=== PATIENT | male | born 1945 | race Two or more races ===

== ENCOUNTER 2017-08-01 08:13 | Observation (INO) | payer OTHER ==
--- NOTE | 2017-08-01 08:38 | CPEKG ---
Heart Rate: 89 RR Interval: 674 P-R Interval: 160 QRSD Interval: 96 QT Interval: 380 QTC Interval: 463 P Humbird: 39 QRS Humbird: 27 T Wave Humbird: 10 EKG Severity - NORMAL ECG - EKG Impression: SINUS RHYTHM Electronically Signed By: Argenis Anne 01-Aug-2017 15:22:51
[2017-08-01] MEDS ORDERED: ASPIRIN 81 MG CHEWABLE TAB PO ONE (08:39)
[2017-08-01] MEDS ORDERED: ASPIRIN 81 MG CHEWABLE TAB ONE (08:40)
[2017-08-01 08:51] LABS: % IMMATURE GRANULYOCYTES 0.7 % (0.0-1.1); ABSOLUTE IMMATURE GRANULOCYTES 0.08 10^3/uL (0.00-0.10); ADD DIFF? NO; ADD MORPH? NO; ADD SCAN? NO; ATYPICAL LYMPHOCYTE FLAG 0 (0-99); FRAGMENT RBC FLAG 0 (0-99); HEMATOCRIT 39.3 % (40.0-51.0); HEMOGLOBIN 13.7 g/dL (13.7-17.5); LEFT SHIFT FLG 0 (0-99); LIPEMIA HEMOLYSIS FLAG 90 (0-99); MEAN CELL HEMOGLOBIN 31.6 pg (27.9-34.1); MEAN CELL HEMOGLOBIN CONCENTR. 34.9 g/dL (32.4-36.7); MEAN CELL VOLUME 90.8 fL (81.5-99.8); PLATELET CLUMPS FLAG 0 (0-99); PLATELET COUNT 278 10^3/uL (150-400); RED BLOOD CELL COUNT 4.33 10^6/uL (4.40-6.38)
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
[2017-08-01 09:05] LABS: ANION GAP 17 mEq/L (8-16); CALCIUM 9.2 mg/dL (8.5-10.4); CARBON DIOXIDE 23 mEq/l (22-31); CHLORIDE 99 mEq/L (97-110); CREATININE 0.7 mg/dL (0.7-1.3); GLOMERULAR FILTRATION RATE > 60; GLUCOSE 103 mg/dL (70-100); POTASSIUM 3.9 mEq/L (3.5-5.2); SODIUM 139 mEq/L (134-144)
[2017-08-01 09:13] LABS: APTT 30.7 SEC (23.0-38.0); INR 1.14 (0.83-1.16); PROTIME(PATIENT) 14.8 SEC (12.0-15.0)
[2017-08-01 09:17] LABS: CREATINE KINASE-MB FRACTION 2.39 ng/mL (0.00-3.19); TROPONIN I < 0.012 ng/mL (0.000-0.034)
[2017-08-01] MEDS ORDERED: AZITHROMYCIN IV 500 MG in D5W 250 ML IV ONE (09:21)
[2017-08-01] MEDS ORDERED: ONDANSETRON 4 MG/2 ML VIAL IVP PRN (09:43)
[2017-08-01] MEDS ORDERED: ACETAMINOPHEN 325 MG TAB PO PRN (09:43)
[2017-08-01] MEDS ORDERED: IBUPROFEN 600 MG TAB PO PRN (09:44)
[2017-08-01] MEDS ORDERED: ASPIRIN EC 81 MG TAB PO SCH (09:45)
[2017-08-01] MEDS ORDERED: OSELTAMIVIR PHOSPHATE 75 MG CAP PO SCH ×2 (11:00→21:00)
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
[2017-08-01] MEDS ORDERED: CEPACOL LOZENGE PO PRN (17:31)
[2017-08-01] MEDS ORDERED: CARBOXYMETHYLCELLULOSE 0.5% 0.4 ML DROPERETTE EACHEYE PRN (21:35)
[2017-08-02 04:09] LABS: % IMMATURE GRANULYOCYTES 0.3 % (0.0-1.1); ABSOLUTE IMMATURE GRANULOCYTES 0.03 10^3/uL (0.00-0.10); ADD DIFF? NO; ADD MORPH? NO; ADD SCAN? NO; ATYPICAL LYMPHOCYTE FLAG 0 (0-99); FRAGMENT RBC FLAG 0 (0-99); HEMATOCRIT 36.5 % (40.0-51.0); HEMOGLOBIN 12.2 g/dL (13.7-17.5); LEFT SHIFT FLG 0 (0-99); LIPEMIA HEMOLYSIS FLAG 80 (0-99); MEAN CELL HEMOGLOBIN CONCENTR. 33.4 g/dL (32.4-36.7); MEAN CELL VOLUME 92.6 fL (81.5-99.8); MEAN PLATELET VOLUME 9.9 fL (8.7-11.7); PLATELET CLUMPS FLAG 0 (0-99); PLATELET COUNT 257 10^3/uL (150-400); RED BLOOD CELL COUNT 3.94 10^6/uL (4.40-6.38); RED CELL DISTRIBUTION WIDTH 12.1 % (11.5-15.2)
[2017-08-02 04:33] LABS: ANION GAP 13 mEq/L (8-16); CALCIUM 8.8 mg/dL (8.5-10.4); CARBON DIOXIDE 29 mEq/l (22-31); CHLORIDE 99 mEq/L (97-110); CREATININE 0.8 mg/dL (0.7-1.3); GLOMERULAR FILTRATION RATE > 60; GLUCOSE 95 mg/dL (70-100); POTASSIUM 4.3 mEq/L (3.5-5.2); SODIUM 141 mEq/L (134-144)
[2017-08-02] MEDS ORDERED: HYDROCODONE/APAP 5/325 TAB PO SCH (09:00)
[2017-08-02] MEDS ORDERED: busPIRone 10 MG TAB PO SCH (09:00)
[2017-08-02] MEDS ORDERED: DOCUSATE SODIUM 100 MG CAP PO SCH (09:00)
[2017-08-02] MEDS ORDERED: ASPIRIN EC 81 MG TAB PO SCH (09:00)
[2017-08-02] MEDS ORDERED: ENOXAPARIN 40 MG/0.4 ML SYR SC SCH (09:00)
[2017-08-02] MEDS ORDERED: NON-FORMULARY NEW DRUG (Levocetirizine Dihydrochloride [Xyzal] 5 MG) PO SCH (09:00)
[2017-08-02] MEDS ORDERED: AZITHROMYCIN IV 500 MG in D5W 250 ML IV SCH (09:00)
--- NOTE | 2017-08-02 09:39 | ECHO ---
[email or web address] [address] [address] Main: [phone] Fax: Transthoracic Echocardiogram Name: PJ MCDONNELL MR#: [id number] Study Date: 08/02/2017 Study Time: 07:43 AM Date of : 1945 Age: 72 year(s) Height: 177.8 cm (70 in.) Weight: 97.52 kg (215 lb.) BSA: 2.15 m2 Gender: Male Examination: Echo Indication: Cardiac: syncope Image Quality: Contrast: Requested by: Shaina Stock BP: 133 mmHg/74 mmHg Heart Rate: Rhythm: Indication: Cardiac: syncope Procedure Staff Cable Splicing Technician: Marcela Garcia Physician: Som Epstein Requesting Provider: Conclusions: 1)Normal LV size and systolic function with a LVEF of 65% and normal wall motions. 2)Mild to moderate left atrial enlargment. 3)Mild to moderate MR without MV prolapse. 4)Mild TR with estimated normal PA pressures. Measurements: Chambers Valvular Assessment AV/MV Valvular Assessment TV/PV Normal Normal Normal Name Value Range Name Value Range Name Value Range Ao Cherise (MM): 3.5 cm (2.2 cm-3.7 AV meanP mmHg ( - ) TR Vmax: 2.29 mm/s ( - ) cm) MV E Vmax: 0.97 m/s ( - ) TR PGmax: 21 mmHg ( - ) IVSd (2D): 0.9 cm (0.6 cm-1.1 MV A Vmax: 0.81 m/s ( - ) syst. PAP: 26 mmHg ( - ) cm) MV E/A: 1.20 ( - ) LVDd (2D): 5.0 cm (4.2 cm-5.9 cm) LVDs (2D): 3.3 cm (2.1 cm-4 cm) LVPWd (2D): 0.8 cm (0.6 cm-1 cm) LVEF (MOD4): 65 % (>=55 %) EF Range: 65 % Continued Measurements: Chambers Valvular Assessment AV/MV Valvular Assessment TV/PV Name Value Name Value Name Value LADs: 4.4 cm MV E' Septal: 0.08 m/s CVP (est.): 5 mmHg LADs Lon.8 cm MV E/E' Septal: 12.20 LA Area: 22.9 cm2 MV E/E' Lateral: 10.60 Patient: PJ MCDONNELL Study Date: 08/02/2017 Page 1 of 2 07:43 AM Findings: Left Ventricle: Normal size left ventricle. No LV hypertrophy. Normal global systolic LV function. The ejection fraction is estimated to be 65 %. No regional wall motion abnormality. Right Ventricle: Upper normal size right ventricle. Left Atrium: The left atrium is mildly to moderately dilated. Right Atrium: The right atrium is normal in size. Mitral Valve: The mitral valve is normal in appearance and function. Mild to moderate mitral regurgitation. Aortic Valve: The aortic valve is normal in appearance and function. Tricuspid Valve: The tricuspid valve is normal in appearance and function. Mild tricuspid regurgitation is present. The pulmonary artery pressure is normal. Pulmonic Valve: The pulmonic valve is normal in appearance and function. Trivial pulmonic valve regurgitation. Aorta: The aorta is normal. Pericardium: No pericardial effusion. (No Signature Object) Patient: PJ MCDONNELL Study Date: 08/02/2017 Page 2 of 2 07:43 AM [id number]
[2017-08-02] MEDS: CETIRIZINE 10 MG TAB PO SCH ×2 (10:25→10:26)
[2017-08-02 11:29] VITALS: BP 130/85; PULSE 89; RESP 18; TEMP 97.9
--- NOTE | 2017-08-02 11:48 | PDHOMEO2F ---
Home Oxygen Face to Face Home Orders: I certify that a physician or a nurse practitioner or physician's primary teaching assistant has had a [id number] encounter with this patient on the date of this order due to the diagnosis listed, which relates to the primary reason the patient requires home oxygen. Alternative treatments have been tried, or considered, and deemed ineffective. It is anticipated that supplemental oxygen will result in improvement with treatment. Home oxygen qualifying diagnosis: COPD SpO2 on room air (%): 83 Frequency of home oxygen needed: continuous Home oxygen liters per minute: 2 Home oxygen delivery device: nasal cannula Concentrator: Yes E-tanks for mobility and back up: Yes If ordering portable O2, is the patient mobile in the home?: Yes I certify that, based on these findings, the home oxygen is medically necessary for this patient for the following length of time. Length of time home oxygen needed: 1 month
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
[2017-08-02 13:02] VITALS: O2SAT 93
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
--- NOTE | 2017-08-02 23:37 | GDS ---
[f rep st] DISCHARGE SUMMARY DISCHARGE DIAGNOSES: 1. Community-acquired pneumonia. 2. Syncope. 3. Hypoxemia due to pneumonia, consider possible underlying chronic obstructive pulmonary disease. 4. Recent knee and toe injury history. HOSPITAL COURSE: The patient is a 72-year-old male visiting from [place], who was starting an illnes s prior to traveling here by plane. Immediately getting off the plane, he felt short of breath and d josh with ongoing low-grade fever and nonproductive cough. He had a brief loss of consciousness and had some pleuritic chest pain. On presentation, he was significantly hypoxic, 83% on room air, and h ad evidence of pneumonia. D-dimer was negative ruling out pulmonary embolus. Respiratory PCR was ne gative for influenza. I suspect his syncope was due to the hypoxemia. He had no recurrent dizziness since started on oxygen therapy. Echocardiogram and telemetry were unremarkable. Troponins were ne gative. He improved on antibiotics and transitioned to oral therapy. He was arranged for home oxyge n to continue throughout the remainder of his time in [place], and upon return to [place], can be re checked with room air saturations. DISCHARGE MEDICATIONS: Please see computerized record for full detailed list. New medication: Leva jose alfredo 750 mg p.o. daily for 5 days. ADDITIONAL DISCHARGE INSTRUCTIONS: Home oxygen continuous 2 L to maintain oxygen saturations greater than or equal to 90%. Patient plans on purchasing a personal pocket pulse oximetry device to monito r this beyond discharge. Patient seen and examined by me on the day of discharge. /[id number]/MODL
== END 2017-08-02 16:00 | disposition home or self-care (01) ==
LOC: F2W 10:15
PROVIDERS: ADMIT Internal Medicine; ATTEND Internal Medicine
DX: J18.9 Pneumonia, unspecified organism (principal); R55 Syncope and collapse; R09.02 Hypoxemia; Z86.711 Personal history of pulmonary embolism
CPT/HCPCS: 71010; 93005; 93306; 97161; 97165; G0378; G8978; G8979; G8980; G8987; G8988; G8989; 96374; J0456; J0696; J1650